=== PATIENT | male | born 1970 | race Caucasian/White ===

== ENCOUNTER 2022-04-12 11:15 | Inpatient (IN) | payer BC, MEDICAID ==
[2022-04-12] VITALS (23 sets, daily range): BP systolic 90–119; BP diastolic 49–77
[~2022-04-12] VITALS: Ht 193 cm; Wt 158.8 kg
[2022-04-12 13:11] LABS: BASOPHILS % 0.6 % (0.0-2.0); EOSINOPHILS % 0.7 % (0.0-5.0); HEMATOCRIT. 47.1 % (42.0-52.0); HEMOGLOBIN. 15.7 g/dL (14.0-18.0); LYMPHOCYTES % 27.5 % (20.0-50.0); MEAN CORPUSCULAR HEMOGLOBIN 28.5 pg (28.0-32.0); MEAN CORPUSCULAR VOLUME 85.4 fL (80.0-94.0); MEAN PLATELET VOLUME 9.6 fl (7.4-10.4); MONOCYTES % 8.1 % (2.0-8.0); NEUTROPHILS % 63.1 % (40.0-76.0); PLATELET 190 x1000/uL (130-400); RED BLOOD CELL COUNT 5.52 mill/uL (4.7-6.1); RED CELL DISTRIBUTION WIDTH 16.2 % (11.6-14.6)
[2022-04-12] MEDS ORDERED: ESMOLOL 2500MG PREMIX 250 ML IV ONE (13:15)
[2022-04-12 13:20] LABS: CHLORIDE 106 mEq/L (98-107)
[2022-04-12] MEDS ORDERED: ESMOLOL 2500MG PREMIX 250 ML IV PRN ×3 (13:30→21:00)
[2022-04-12 13:37] LABS: ETHANOL BLOOD < 10 mg/dL; T4 FREE 1.43 ng/dL (0.76-1.46)
[2022-04-12] MEDS: ASPIRIN 81MG TABLET PO SCH (16:24)
[2022-04-12] MEDS ORDERED: ONDANSETRON HCL 4MG/2ML INJ IV PRN (18:30)
[2022-04-12] MEDS ORDERED: ACETAMINOPHEN 325MG TABLET PO PRN (18:30)
[2022-04-12] MEDS ORDERED: DEXT 5%/0.45% NACL 1000ML 1,000 ML IV SCH (18:30)
[2022-04-12] MEDS ORDERED: ATOR-2 PO (19:11)
[2022-04-12] MEDS ORDERED: EPLE25TA10 PO (19:11)
[2022-04-12] MEDS ORDERED: METO-411 PO (19:11)
[2022-04-12] MEDS ORDERED: SACU1TAB7 PO (19:11)
[2022-04-12] MEDS ORDERED: CANA100T PO (19:11)
[2022-04-12] MEDS ORDERED: APIX5TAB PO (19:11)
[2022-04-12] MEDS ORDERED: *PATIENT'S OWN MEDICATION STORAGE XX SCH (19:15)
[2022-04-12] MEDS ORDERED: ATORVASTATIN CALCIUM 40MG TABLET PO SCH (21:00)
[2022-04-12] MEDS: ATORVASTATIN CALCIUM 40MG TABLET PO SCH (21:43)
[2022-04-12] MEDS: ENOXAPARIN 120MG/0.8ML SYR SUBCUT SCH (21:43)
[2022-04-13] VITALS (86 sets, daily range): BP systolic 24–164; BP diastolic 17–93
[2022-04-13 00:22] LABS: CREATINE KINASE MB FRACTION 3.3 ng/mL (0.5-3.6)
[2022-04-13 00:49] LABS: CLARITY URINE CLEAR (CLEAR); COLOR URINE DARK YELLOW (YELLOW); KETONES URINE TRACE (NEGATIVE); LEUKOCYTE ESTERASE URINE NEGATIVE (NEGATIVE); NITRITE URINE NEGATIVE (NEGATIVE); OCCULT BLOOD URINE 3+ (NEGATIVE); PH URINE 5.5 (4.5-8.0); PROTEIN URINE 2+ (NEGATIVE); SPECIFIC GRAVITY URINE 1.033 (1.005-1.030)
[2022-04-13 01:45] LABS: *AMPHETAMINES SCREEN URINE NEGATIVE (NEGATIVE); *BARBITURATES SCREEN URINE NEGATIVE (NEGATIVE); *BENZODIAZEPINES SCREEN URINE NEGATIVE (NEGATIVE); *COCAINE SCREEN URINE NEGATIVE (NEGATIVE); CANNABINOID URINE SCREEN NEGATIVE (NEGATIVE); METHADONE URINE SCREEN NEGATIVE (NEGATIVE); OPIATES URINE SCREEN NEGATIVE (NEGATIVE); PHENCYCLIDINE URINE SCREEN NEGATIVE (NEGATIVE)
[2022-04-13 05:37] LABS: INR 1.3; PROTHROMBIN TIME 13.9 sec (9.6-11.0)
[2022-04-13 06:02] LABS: CREATINE KINASE MB FRACTION 2.8 ng/mL (0.5-3.6)
[2022-04-13] MEDS ORDERED: METOPROLOL TARTRATE 50MG TABLET PO SCH (09:00)
[2022-04-13] MEDS: PANTOPRAZOLE SODIUM 40 MG/VIAL IV SCH (09:27)
[2022-04-13] MEDS: ENOXAPARIN 120MG/0.8ML SYR SUBCUT SCH ×2 (09:27→21:40)
[2022-04-13] MEDS: ASPIRIN 81MG TABLET PO SCH (09:27)
[2022-04-13 10:22] LABS: BASOPHILS % 0.6 % (0.0-2.0); EOSINOPHILS % 0.8 % (0.0-5.0); HEMATOCRIT. 46.1 % (42.0-52.0); HEMOGLOBIN. 15.2 g/dL (14.0-18.0); LYMPHOCYTES % 28.7 % (20.0-50.0); MEAN CORPUSCULAR VOLUME 84.7 fL (80.0-94.0); MONOCYTES % 5.9 % (2.0-8.0); PLATELET 175 x1000/uL (130-400); RED BLOOD CELL COUNT 5.44 mill/uL (4.7-6.1); RED CELL DISTRIBUTION WIDTH 16.4 % (11.6-14.6)
[2022-04-13 10:30] LABS: CHLORIDE 105 mEq/L (98-107)
[2022-04-13] MEDS ORDERED: SACUBITRIL/VALSARTAN 49MG/51MG TABLET PO SCH (14:30)
[2022-04-13] MEDS: ENTRESTO PO SCH ×2 (16:49→23:01)
[2022-04-13] MEDS: ATORVASTATIN CALCIUM 40MG TABLET PO SCH (21:40)
[2022-04-13] MEDS: METOPROLOL TARTRATE 25MG TABLET PO SCH (21:42)
[2022-04-14] VITALS (43 sets, daily range): BP systolic 44–120; BP diastolic 16–86
[2022-04-14 05:40] LABS: BASOPHILS % 0.6 % (0.0-2.0); CHLORIDE 103 mEq/L (98-107); EOSINOPHILS % 1.5 % (0.0-5.0); HEMATOCRIT. 44.3 % (42.0-52.0); HEMOGLOBIN. 14.6 g/dL (14.0-18.0); LYMPHOCYTES % 35.2 % (20.0-50.0); MEAN CORPUSCULAR HEMOGLOBIN 28.4 pg (28.0-32.0); MEAN CORPUSCULAR VOLUME 86.2 fL (80.0-94.0); MEAN PLATELET VOLUME 10.4 fl (7.4-10.4); MONOCYTES % 9.5 % (2.0-8.0); NEUTROPHILS % 53.2 % (40.0-76.0); PLATELET 166 x1000/uL (130-400); RED BLOOD CELL COUNT 5.14 mill/uL (4.7-6.1); RED CELL DISTRIBUTION WIDTH 16.8 % (11.6-14.6)
[2022-04-14] MEDS: ASPIRIN 81MG TABLET PO SCH (08:31)
[2022-04-14] MEDS: ENTRESTO PO SCH ×2 (08:31→20:24)
[2022-04-14] MEDS: PANTOPRAZOLE SODIUM 40 MG/VIAL IV SCH (08:31)
[2022-04-14] MEDS: ENOXAPARIN 120MG/0.8ML SYR SUBCUT SCH (08:32)
[2022-04-14] MEDS: METOPROLOL TARTRATE 25MG TABLET PO SCH ×3 (08:32→20:24)
[2022-04-14] MEDS ORDERED: ENOXAPARIN 120MG/0.8ML SYR SUBCUT NR (20:00)
[2022-04-14] MEDS: ATORVASTATIN CALCIUM 40MG TABLET PO SCH (20:24)
[2022-04-15] VITALS (11 sets, daily range): BP systolic 86–128; BP diastolic 46–85
[2022-04-15] MEDS ORDERED: SODIUM CHLORIDE 0.45% 1,000 ML IV ONE (06:00)
[2022-04-15 06:58] LABS: BASOPHILS % 0.7 % (0.0-2.0); EOSINOPHILS % 1.2 % (0.0-5.0); HEMATOCRIT. 44.6 % (42.0-52.0); HEMOGLOBIN. 14.9 g/dL (14.0-18.0); LYMPHOCYTES % 35.8 % (20.0-50.0); MEAN CORPUSCULAR HEMOGLOBIN 28.4 pg (28.0-32.0); MEAN CORPUSCULAR VOLUME 85.2 fL (80.0-94.0); MEAN PLATELET VOLUME 10.2 fl (7.4-10.4); NEUTROPHILS % 54.3 % (40.0-76.0); PLATELET 172 x1000/uL (130-400); RED BLOOD CELL COUNT 5.23 mill/uL (4.7-6.1); RED CELL DISTRIBUTION WIDTH 16.7 % (11.6-14.6)
[2022-04-15] MEDS: METOPROLOL TARTRATE 25MG TABLET PO SCH ×2 (08:39→22:43)
[2022-04-15] MEDS: PANTOPRAZOLE SODIUM 40 MG/VIAL IV SCH (08:45)
[2022-04-15] MEDS: ENTRESTO PO SCH ×2 (08:45→21:00)
[2022-04-15] MEDS: ASPIRIN 81MG TABLET PO SCH (08:45)
[2022-04-15] MEDS ORDERED: DIPHENHYDRAMINE 50MG/ML VIAL ONE (14:08)
[2022-04-15] MEDS ORDERED: FENTANYL CITRATE/PF 50MCG/ML 2ML VIAL ONE (14:08)
[2022-04-15] MEDS ORDERED: HEPARIN 1000 UNITS/ML 10ML ONE ×2 (14:08→15:07)
[2022-04-15] MEDS ORDERED: MIDAZOLAM HCL 2 MG/2 ML VIAL ONE (14:08)
[2022-04-15] MEDS ORDERED: IODIXANOL 320MG/ML 100 ML BOTTLE IV ONE ×2 (14:09→15:16)
[2022-04-15] MEDS ORDERED: LIDOCAINE HCL 1% 10 MG/ML 10ML VIAL ONE (14:13)
[2022-04-15] MEDS ORDERED: VERAPAMIL HCL 2.5 MG/1 ML 2ML VIAL IV ONE (14:13)
[2022-04-15] MEDS ORDERED: CLOPIDOGREL 75MG TABLET ONE (15:51)
[2022-04-15] MEDS ORDERED: ATROPINE SULFATE 1MG/10ML SYR IV PRN (16:15)
[2022-04-15] MEDS: ATORVASTATIN CALCIUM 40MG TABLET PO SCH (22:43)
[2022-04-15] MEDS: FAMOTIDINE 20MG/2ML VIAL IV SCH (22:43)
[2022-04-16] VITALS: BP 94/69
[2022-04-16] MEDS ORDERED: DEXTROSE 50% WATER 50ML SYRINGE IV PRN (00:30)
[2022-04-16 02:00] VITALS: BP 97/50
[2022-04-16 04:00] VITALS: BP 87/59
[2022-04-16 06:00] VITALS: BP 91/51
[2022-04-16 06:28] LABS: BASOPHILS % 0.6 % (0.0-2.0); EOSINOPHILS % 0.7 % (0.0-5.0); HEMATOCRIT. 45.3 % (42.0-52.0); HEMOGLOBIN. 14.8 g/dL (14.0-18.0); MEAN CORPUSCULAR HEMOGLOBIN 28.1 pg (28.0-32.0); MEAN CORPUSCULAR VOLUME 86.2 fL (80.0-94.0); MEAN PLATELET VOLUME 10.3 fl (7.4-10.4); MONOCYTES % 7.9 % (2.0-8.0); NEUTROPHILS % 66.8 % (40.0-76.0); PLATELET 155 x1000/uL (130-400); RED BLOOD CELL COUNT 5.26 mill/uL (4.7-6.1); RED CELL DISTRIBUTION WIDTH 16.6 % (11.6-14.6)
[2022-04-16] MEDS: INSULIN LISPRO 100 UNITS/ML SUBCUT SCH ×3 (07:08→17:33)
[2022-04-16] MEDS: BLOOD SUGAR DIAGNOSTIC STRIP TEST SCH ×3 (07:08→17:33)
[2022-04-16 08:11] VITALS: BP 95/46
[2022-04-16] MEDS: FAMOTIDINE 20MG/2ML VIAL IV SCH (08:13)
[2022-04-16] MEDS: METOPROLOL TARTRATE 25MG TABLET PO SCH (08:13)
[2022-04-16] MEDS: ASPIRIN 81MG TABLET PO SCH (08:17)
[2022-04-16] MEDS: APIXABAN 5 MG TABLET PO SCH ×2 (08:17→18:04)
[2022-04-16] MEDS: ENTRESTO PO SCH (08:18)
[2022-04-16] MEDS ORDERED: CLOPIDOGREL 75MG TABLET PO SCH (09:00)
[2022-04-16 16:47] VITALS: BP 99/48
[2022-04-16] MEDS ORDERED: ASPI-986 PO (17:44)
[2022-04-16] MEDS ORDERED: CLOP-31 PO (17:45)
== END 2022-04-16 18:19 | disposition home or self-care (01) | DRG 246 ==
LOC: ER 11:15 → CVICU 14:54 → 5EST 04-14 11:31
PROVIDERS: ADMIT Internal Medicine; ATTEND Internal Medicine
PROC: 027036Z Dilation of Coronary Artery, One Artery with Three Drug-eluting Intraluminal Devices, Percutaneous Approach (ICD-10-PCS; principal; 2022-04-15)
PROC: B211YZZ Fluoroscopy of Multiple Coronary Arteries using Other Contrast (ICD-10-PCS; 2022-04-15)
PROC: 4A023N7 Measurement of Cardiac Sampling and Pressure, Left Heart, Percutaneous Approach (ICD-10-PCS; 2022-04-15)
PROC: B54MZZA Ultrasonography of Right Upper Extremity Veins, Guidance (ICD-10-PCS; 2022-04-15)
DX: I21.4 Non-ST elevation (NSTEMI) myocardial infarction (principal); I50.23 Acute on chronic systolic (congestive) heart failure; I42.9 Cardiomyopathy, unspecified; I48.19 Other persistent atrial fibrillation; I69.351 Hemiplegia and hemiparesis following cerebral infarction affecting right dominant side; Z68.41 Body mass index [BMI] 40.0-44.9, adult; E11.9 Type 2 diabetes mellitus without complications; E78.5 Hyperlipidemia, unspecified; I44.7 Left bundle-branch block, unspecified; I49.5 Sick sinus syndrome; E66.01 Morbid (severe) obesity due to excess calories; I11.0 Hypertensive heart disease with heart failure; Z20.822 Contact with and (suspected) exposure to COVID-19; I25.10 Atherosclerotic heart disease of native coronary artery without angina pectoris; Z82.49 Family history of ischemic heart disease and other diseases of the circulatory system; Z79.01 Long term (current) use of anticoagulants; Z79.899 Other long term (current) drug therapy; Z79.84 Long term (current) use of oral hypoglycemic drugs
CPT/HCPCS: 36415; 71045; 80048; 80053; 80305; 80320; 81003; 82550; 82553; 82962; 83036; 83880; 84439; 84443; 84484; 85025; 85347; 87207; 87426; 92928; 93005; 93306; 93458; 93970; 99291; C1725; C1769; C1874; C1887; C1893; C9113; J1200; J1644; J1650; J2250; J3010; J3490; Q9967; G0480